=== PATIENT | male | born 1980 | race African-American/Black ===

== ENCOUNTER 2021-11-12 11:14 | Emergency (ER) | payer SELFPAY ==
[2021-11-12 12:00] LABS: Bilirubin Neg (Negative); Blood, Urine 150 (Negative); Clarity Slightly Cloudy (Clear); Glucose, Urine (Dipstick) Normal (Negative); Ketone, Urine Negative (Negative); Leukocyte 500 (Negative); Nitrite Negative (Negative); Protein, Urine (Dipstick) 30 mg/dl (Neg-Trace)
[2021-11-12 12:12] LABS: Squamous Epithelial 0-3 HPF (0-3); Transitional Epithelial 0-3 HPF (None Seen)
[2021-11-12 12:13] LABS: Mucous/LPF 1+ LPF (<2+); Oval Fat Bodies/HPF Rare HPF (None Seen)
[2021-11-12 12:14] LABS: Bacteria/HPF Rare-Few HPF (None Seen)
[2021-11-12] MEDS ORDERED: Azithromycin 250 MG TAB ONE (12:31)
[2021-11-12] MEDS ORDERED: cefTRIAXone\\ROCEPHIN 500 MG VIAL ONE (12:31)
[2021-11-12] MEDS ORDERED: Sterile Water 10 ML ONE (12:32)
[2021-11-12 21:03] LABS: Chlam.trachomatis by PCR,Urine Not Detected (NotDetected)
== END 2021-11-12 13:30 | disposition home or self-care (01) ==
LOC: CSHERS 11:14
DX: N34.2 Other urethritis (principal); R82.81 Pyuria
CPT/HCPCS: 81003; 81015; 87491; 87591; 96372; 99283; J0696